=== PATIENT | female | born 1995 ===

== ENCOUNTER 2018-08-23 14:05 | Outpatient (CLI) | payer OTHER ==
[~2018-08-23] VITALS: Ht 160 cm; Wt 52.2 kg
== END 2018-08-23 14:25 | disposition home or self-care (01) ==
LOC: OFIC 805 14:05
DX: R09.81 Nasal congestion (principal); H61.23 Impacted cerumen, bilateral; J30.89 Other allergic rhinitis

== ENCOUNTER → 2019-02-12 | Outpatient (CLI) | payer OTHER | END | disposition home or self-care (01) | LOC: LAB 14:51 | DX: J11.1 Influenza due to unidentified influenza virus with other respiratory manifestations (principal); J11.89 Influenza due to unidentified influenza virus with other manifestations ==